=== PATIENT | female | born 1975 | race Caucasian/White ===

== ENCOUNTER 2017-11-21 17:45 | Emergency (ER) | payer MEDICAID ==
--- NOTE | 2017-11-21 17:57 | Emergency Department Record ---
History of Present Illness - General Chief Complaint: Ankle/Foot Injury Stated Complaint: TOE INJURY Time Seen by Provider: 11/21/17 17:57 Source: Patient Mode of Arrival: Ambulatory Limitations: No limitations - History of Present Illness Initial Comments: The patient is here due to R 5th toe pain. She injured it twice in the last week. First she bent it back a week ago and today kicked the dresser with the 5th toe. She is able to walk with pain. MD Complaint: Foot injury Onset/Timin -: Hour(s) Place: Home Severity: Mild Severity scale (1-10): 2 Improves With: Rest Worsens With: Weight bearing - Related Data Home Medications Medication Instructions Recorded Confirmed Last Taken Citalopram Hydrobromide [Celexa] 40 mg PO DAILY 11/21/17 11/21/17 11/21/17 Thyroid,Pork [[place] Thyroid] 15 mg PO DAILY 11/21/17 11/21/17 11/21/17 Allergies Allergy/AdvReac Type Severity Reaction Status Date / Time diphenhydramine Allergy HIVES Verified 11/21/17 17:57 [From Benadryl] Sulfa (Sulfonamide Allergy HIVES Verified 11/21/17 17:57 Antibiotics) Travel Screening - Travel/Exposure Within Last 30 Days Have you traveled within the last 30 days?: No - Travel/Exposure Within Last Year Have you traveled outside the [place] in the last year?: No - Additonal Travel Details Have you been exposed to anyone with a communicable illness?: No - Travel Symptoms Symptom Screening: None Past Medical History - SOCIAL HISTORY Smoking Status: Never smoker Alcohol Use: Occasional Drug Use: None - RESPIRATORY Hx Respiratory Disorders: No - CARDIOVASCULAR Hx Cardio Disorders: No - NEURO Hx Neuro Disorders: No - GI Hx GI Disorders: No - Hx Genitourinary Disorders: No - ENDOCRINE Hx Endocrine Disorders: Yes Hx Diabetes: No Hx Thyroid Disease: Yes - MUSCULOSKELETAL Hx Musculoskeletal Disorders: No - PSYCH Hx Psych Problems: Yes Hx Anxiety: Yes Hx Depression: Yes - HEMATOLOGY/ONCOLOGY Hx Hematology/Oncology Disorders: No Family Medical History Any Significant Family History?: No Physical Exam - General General Appearance: Alert, Cooperative, No acute distress - Head Head exam: Normal inspection - Extremities Extremities exam: Normal capillary refill, Tenderness (There is tenderness to the 5th toe.). negative: Normal inspection (There is bruising to the R 5th toe. ), Full ROM, Joint swelling Course Vital Signs 11/21/17 17:48 Temperature 98.4 F Pulse Rate 82 Respiratory 16 Rate Blood Pressure 143/8 Pulse Ox 98 - Reevaluation(s) Reevaluation #1: I did discuss the xray results with the patient and the need for baltazar taping and a hard soled shoe for a week. 11/21/17 18:27 Medical Decision Making - Data Complexity MDM Data: X-Ray Ordered and/or Reviewed - Radiology Data Radiology results: Report reviewed (foot xray: Min displaced chip fx medial proximal middle phalynx R 5th toe.) Disposition Disposition: Discharge Clinical Impression: Toe fracture, right Qualifiers: Encounter type: initial encounter Toe: unspecified toe Fracture type: closed Fracture alignment: nondisplaced Qualified Code(s): S92.911A - Unspecified fracture of right toe(s), initial encounter for closed fracture Disposition: Home, Self-Care Condition: (2) Stable Instructions: Toe Fracture (ED) Additional Instructions: Please use Tylenol or Motrin for pain and baltazar tape the 4th and 5th toes for 2 weeks. Use the hard soled shoe for a week. Please see your PCP for recheck next week if not better and return to the ER for any worsening symptoms. Forms: Patient Portal Access Time of Disposition: 18:30 Quality - Quality Measures Quality Measures: N/A - Blood Pressure Screening View Details: Yes Does Patient Have Any of the Following: No Blood Pressure Classification: Hypertensive Reading Systolic Measurement: 143 Diastolic Measurement: 8 Screening for High Blood Pressure: < Normal BP, F/U Not Required > [[id number]]
--- NOTE | 2017-11-22 12:57 | RADIOLOGY REPORT ---
EXAM: RIGHT FOOT HISTORY: TRAUMA TO FIFTH TOE. TECHNIQUE: Three views of the right foot were obtained. Comparison: None. Encounter: Initial. FINDINGS: Minimally displaced intraarticular fracture deformity involving the middle phalanx of the fifth toe. Associated soft tissue swelling. IMPRESSION: FRACTURE DEFORMITY OF THE MIDDLE PHALANX OF THE FIFTH TOE. JOB NUMBER: [id number] MTDD
== END 2017-11-21 18:49 | disposition home or self-care (01) ==
LOC: ER 17:45
DX: S92.511A Displaced fracture of proximal phalanx of right lesser toe(s), initial encounter for closed fracture (principal); W22.8XXA Striking against or struck by other objects, initial encounter; Y92.009 Unspecified place in unspecified non-institutional (private) residence as the place of occurrence of the external cause
CPT/HCPCS: 99283